=== PATIENT | male | born 1975 | race African-American/Black ===

== ENCOUNTER 2020-07-10 02:08 | Observation (INO) ==
[2020-07-10] MEDS ORDERED: DIPHTHERIA/TETANUS ADULT VACCINE 0.5 ML SYRINGE IM ONE (02:21)
[2020-07-10 02:34] LABS: Basophils % 0.6 % (0.0-0.8); Eosinophils # 0.1 10*3/uL (0.0-0.87); Eosinophils % 0.9 % (0.00-10.9); Hematocrit 45.7 VOL% (42.0-52.0); Hemoglobin 15.1 GM/DL (14.0-18.0); Immature Granulocytes % 0.6 %; Immature Granulocytes Absolute 0.04 #; Lymphocytes # 2.4 10*3/uL (1.4-4.0); Lymphocytes % 33.9 % (21.2-54.2); Mean Corpuscular Volume 91.4 FL (87-102); Mean Platelet Volume 11.1 FL (9.6-12.0); Monocytes % 8.7 % (1.7-12.7); Neutrophils % 55.3 % (38.7-73.9); Platelet Count 253 T/CUMM (130-400); Red Cell Distribution Width 13.8 % (9.3-17.3)
[2020-07-10 02:40] LABS: Partial Thromboplastin Time 21.5 SECS (23.9-33.8)
[2020-07-10 02:45] LABS: Alanine Aminotransferase 38 U/L (16-61); Albumin 4.3 G/DL (3.4-5.0); Alkaline Phosphatase 84 U/L (45-117); Amylase 90 U/L (25-115); Aspartate Amino Transferase 33 U/L (0-37); Bilirubin,Total < 0.39 MG/DL (0.2-1.0); Blood Urea Nitrogen 11 MG/DL (7-18); Calcium 8.8 MG/DL (8.5-10.1); Carbon Dioxide 14 MMOL/L (21-32); Glucose 228 MG/DL (74-106); Osmolality,Calculated 273.2 MOS/KG (273-304); Potassium 2.8 MMOL/L (3.5-5.1); Sodium 134 MMOL/L (136-145); Total Protein 8.1 G/DL (6.4-8.2)
[2020-07-10 02:46] LABS: Estimated Glom Filtration Rate 0 ML/MIN
[2020-07-10] MEDS ORDERED: LIDOCAINE 1% 20 ML VIAL INFILTRAT STA (02:48)
[2020-07-10 03:12] LABS: Eosinophils 2 % (0-10); Lymphocytes 44 % (20-55); Segmented Neutrophils 51 % (50-85); Total Cells Counted 100
[2020-07-10 03:13] LABS: Anisocytosis Slight; Macrocytosis Slight; Microcytosis Slight; Platelet Estimate Decreased; Polychromasia Few
[2020-07-10] MEDS ORDERED: SODIUM CHLORIDE 0.9% 1,000 ML IV STA (04:09)
[2020-07-10] MEDS ORDERED: ACETAMINOPHEN 325 MG TABLET PO PRN ×2 (04:11→06:00)
[2020-07-10] MEDS ORDERED: MORPHINE 4 MG/1 ML VIAL IV PRN (04:11)
[2020-07-10] MEDS ORDERED: ONDANSETRON 4 MG/2 ML VIAL IV PRN ×2 (04:11→06:00)
[2020-07-10] MEDS ORDERED: THIAMINE INJ 100 MG, FOLIC ACID INJ 1 MG, MAGNESIUM SULF INJ 2 GM, MULTIVITAMIN INJ 10 ... IV ONE (04:11)
[2020-07-10 05:04] LABS: Bilirubin,Urine Negative (Negative); Blood, Urine Small mg/dL (Negative); Glucose,Urine (UA) Negative (Negative); Ketones,Urine Negative (Negative); Nitrite,Urine Negative (Negative); Protein,Urine 30 MG/DL; RBC,Urine <1 /HPF (0-4); Urine Appearance CLEAR (Clear); Urine Color Straw (Yellow); Urine Specific Gravity 1.024 (1.001-1.035); Urine Urobilinogen < 2.0 EU/DL (0.2-1.0)
[2020-07-10 05:31] LABS: Barbiturates Screen,Urine Negative (Negative); Benzodiazepines Screen,Urine Negative (Negative); Cannabinoid Screen,Urine Positive (Negative); Opiate Screen,Urine Negative (Negative); Phencyclidine Screen,Urine Negative (Negative)
[2020-07-10] MEDS ORDERED: THIAMINE INJ 100 MG, FOLIC ACID INJ 1 MG, MULTIVITAMIN INJ 10 ML in SODIUM CHLORIDE 0.9... IV ONE (07:00)
[2020-07-10] MEDS: PANTOPRAZOLE 40 MG VIAL IV SCH (08:33)
[2020-07-10] MEDS ORDERED: PANTOPRAZOLE 40 MG VIAL IV SCH (09:00)
[2020-07-10] MEDS: MORPHINE 4 MG/1 ML VIAL IV PRN ×4 (09:20→22:49)
[2020-07-10] MEDS ORDERED: LACTATED RINGERS 1,000 ML IV ONE (10:02)
[2020-07-10] MEDS: POTASSIUM CHLORIDE 20 MEQ TABLET PO SCH ×2 (11:03→17:00)
[2020-07-10] MEDS: ENOXAPARIN 40 MG/0.4 ML SYRINGE SUBCUT SCH (11:44)
[2020-07-10 15:40] LABS: Basophils % 0.4 % (0.0-0.8); Eosinophils % 0.3 % (0.00-10.9); Hemoglobin 13.9 GM/DL (14.0-18.0); Immature Granulocytes % 0.3 %; Immature Granulocytes Absolute 0.02 #; Lymphocytes # 1.7 10*3/uL (1.4-4.0); Lymphocytes % 22.2 % (21.2-54.2); Mean Corpuscular HGB Conc 33.9 GM/DL (32-36); Mean Corpuscular Volume 89.7 FL (87-102); Mean Platelet Volume 11.3 FL (9.6-12.0); Neutrophils % 67.8 % (38.7-73.9); Platelet Count 219 T/CUMM (130-400); Red Blood Count 4.57 MC/CUMM (3.8-5.5); Red Cell Distribution Width 13.8 % (9.3-17.3); White Blood Count 7.7 T/CUMM (4-12)
[2020-07-10 16:06] LABS: Calcium 8.5 MG/DL (8.5-10.1); Osmolality,Calculated 272.7 MOS/KG (273-304); Potassium 4.2 MMOL/L (3.5-5.1)
[2020-07-10] MEDS ORDERED: POTASSIUM CHLORIDE 20 MEQ TABLET PO SCH (17:00)
[2020-07-10] MEDS: LACTATED RINGERS 1,000 ML IV SCH ×2 (17:48→22:50)
[2020-07-11] MEDS: MORPHINE 4 MG/1 ML VIAL IV PRN ×5 (02:33→21:51)
[2020-07-11] MEDS: LACTATED RINGERS 1,000 ML IV SCH ×4 (06:35→22:42)
[2020-07-11] MEDS: PANTOPRAZOLE 40 MG VIAL IV SCH (08:46)
[2020-07-11 11:17] LABS: Troponin I < 0.015 NG/ML (0.00-0.045)
[2020-07-11] MEDS: ENOXAPARIN 40 MG/0.4 ML SYRINGE SUBCUT SCH (11:51)
[2020-07-11 18:21] LABS: Troponin I < 0.015 NG/ML (0.00-0.045)
[2020-07-12] MEDS: MORPHINE 4 MG/1 ML VIAL IV PRN ×3 (01:43→12:29)
[2020-07-12 02:26] LABS: Troponin I < 0.015 NG/ML (0.00-0.045)
[2020-07-12] MEDS: LACTATED RINGERS 1,000 ML IV SCH ×2 (07:20→11:50)
[2020-07-12] MEDS: PANTOPRAZOLE 40 MG VIAL IV SCH (08:56)
[2020-07-12 11:05] VITALS: BP 142/79
[2020-07-12] MEDS ORDERED: MAGNESIUM HYDROXIDE SUSP 30 ML UDCUP PO ONE (12:15)
[2020-07-12] MEDS: ENOXAPARIN 40 MG/0.4 ML SYRINGE SUBCUT SCH (12:30)
== END 2020-07-12 13:24 | disposition home or self-care (01) ==
LOC: EDBD → EDUNIT# → N.ED 02:08 → N.EDINP 02:08 → N.3E 06:53
PROVIDERS: ADMIT Surgery; ATTEND Surgery